=== PATIENT | male | born 1955 | race Caucasian/White ===

== ENCOUNTER 2016-08-18 15:33 | Emergency (ER) | payer OTHER | END 2016-08-18 17:44 | disposition home or self-care (01) | LOC: ER 15:33 | DX: J44.1 Chronic obstructive pulmonary disease with (acute) exacerbation (principal); I10 Essential (primary) hypertension; I48.91 Unspecified atrial fibrillation; Z79.899 Other long term (current) drug therapy; Z79.01 Long term (current) use of anticoagulants | CPT/HCPCS: 71020; 93005; 94664; 96372; 99283; 99283-25; J2930 ==

== ENCOUNTER 2016-09-02 22:50 | Emergency (ER) | payer OTHER ==
[2016-09-02 23:33] LABS: BASO % 0.5 % (0.2-1.2); EOS # 0.4 10_X3_uL (0.0-0.5); EOS % 4.7 % (0.8-7.0); HEMATOCRIT 38.3 % (40-51); HEMOGLOBIN 12.6 g/dL (13.7-17.5); LYMPH # 2.1 10_X3_uL (1.3-3.6); LYMPH % 25.2 % (21.8-53.1); MEAN CORPUSCULAR HGB CONC 32.9 g/dL (32.0-36.0); MEAN CORPUSCULAR VOLUME 91.2 fL (79-92); MEAN PLATELET VOLUME 11.2 fl (7.5-11.5); MONO # 0.9 10_X3_uL (0.3-0.8); MONO % 10.6 % (5.3-12.2); PLATELET COUNT 179 x10_3/uL (163-337); RED CELL DISTRIBUTION WIDTH 14.2 % (11.6-14.4); WHITE BLOOD COUNT 8.5 x10_3/uL (4.2-9.1)
[2016-09-02 23:45] LABS: ALKALINE PHOSPHATASE 78 U/L (50-136); ALT/SGPT 12 U/L (7.53-40.17); AST/SGOT 15 U/L (6.66-35.34); BILIRUBIN,TOTAL 0.38 mg/dL (0.0-1.0); BLOOD UREA NITROGEN 20 mg/dL (7-18); CALCIUM 9.4 mg/dL (8.7-10.7); CARBON DIOXIDE 25 mmol/L (21-32); CREATINE KINASE 104 U/L (35-232); CREATININE 1.2 mg/dL (0.6-1.3); GLUCOSE,RANDOM 88 mg/dL (70-99); POTASSIUM 3.9 mmol/L (3.5-5.1); SODIUM 135 mmol/L (136-145); TOTAL PROTEIN 6.9 gm/dL (6.4-8.2)
== END 2016-09-03 00:35 | disposition home or self-care (01) ==
LOC: ER 22:50
PROVIDERS: Emergency Medicine
DX: J44.1 Chronic obstructive pulmonary disease with (acute) exacerbation (principal); I10 Essential (primary) hypertension; Z79.899 Other long term (current) drug therapy; Z79.01 Long term (current) use of anticoagulants
CPT/HCPCS: 36415; 71020; 80053; 82550; 82553; 83880; 85025; 93005; 94664; 96372; 99284; 99284-25; J2930